=== PATIENT | male | born 1965 | race Hispanic/Latino ===

== ENCOUNTER 2018-08-05 16:43 | Emergency (ER) | payer SELFPAY ==
[~2018-08-05] VITALS: Ht 165.1 cm; Wt 60.0 kg
[~2018-08-05 16:43] MED LIST: AMLODIPINE5 MG PO; CLOTRIMAZOLE13 EX; FLAGYL500 MG OR; FLEXERIL10 MG PO; GLYBURIDE5 MG PO; LISINOPRIL10 MG PO; METFORMIN500 MG PO; NAPROSYN500 MG PO; NO HOME MEDS
[2018-08-05 17:14] LABS: HEMATOCRIT 40.1 % (39.0-50.0); HEMOGLOBIN 14.2 g/dl (14.0-18.0); IMMATURE GRANULOCYTES 0.3 % (0.0-5.0); MEAN CELL VOLUME 84.8 fL CALC (80.0-100.0); MEAN CORPUSCULAR HGB CONC 35.4 g/L CALC (32.0-36.0); NEUT# 5.05 thou/uL (1.82-7.42); RED BLOOD COUNT 4.73 mill/uL (4.70-6.10); RED CELL DISTRI WIDTH 12.5 % (11.5-15.5)
[2018-08-05 17:33] LABS: ANION GAP 14 (6-22 (CALC)); BUN 19 mg/dL (9-20); BUN/CREATININE RATIO 37 (12-20 (CALC)); CARBON DIOXIDE 30 mmol/l (22-30); CHLORIDE 96 mmol/l (95-108); CREATININE 0.5 mg/dL (0.7-1.3); GFR > 60 ML/MIN (>=60 (CALC)); GFR FOR AFR.AMER. > 60 ML/MIN (>=60 (CALC)); MAGNESIUM 1.5 mg/dL (1.6-2.3); SODIUM 136 mmol/l (137-146)
[2018-08-05 17:38] LABS: POTASSIUM 3.5 mmol/l (3.5-5.1)
[2018-08-05 18:26] VITALS: BP 167/103
== END 2018-08-05 18:27 | disposition left against medical advice (07) | DRG 311 ==
LOC: ED 16:43
PROVIDERS: Family Medicine
DX: I20.9 Angina pectoris, unspecified (principal); I10 Essential (primary) hypertension; E11.9 Type 2 diabetes mellitus without complications; Z91.19 Patient's noncompliance with other medical treatment and regimen